=== PATIENT | male | born 1990 | race Two or more races ===

== ENCOUNTER 2021-03-11 08:32 | Emergency (ER) | payer OTHER ==
[~2021-03-11] VITALS: Ht 180.3 cm; Wt 117.9 kg
[2021-03-11 09:14] LABS: Basophils # (auto) 0 10 ^3/uL (0-0.2); Eosinophils # (auto) 0.1 10 ^3/uL (0-0.8); Nucleated Red Blood Cells % 0.2 %; Red Cell Distribution Width 12.9 % (11.8-14.3)
[2021-03-11 09:16] LABS: Basophils % (auto) 0.5 % (0.0-2.0); Eosinophils % (auto) 0.6 % (0.0-7.0); Hematocrit 50.9 % (41.0-53.0); Hemoglobin 18.2 g/dL (13.5-17.5); Mean Corpuscular Hemoglobin 31.6 pg (28.0-32.0); Mean Corpuscular Hgb Conc. 35.8 g/dL (32.0-36.0); Mean Corpuscular Volume 88.3 fL (80.0-100.0); Neutrophils # (auto) 5.5 10 ^3/uL (1.6-8.6); Neutrophils % (auto) 60.4 % (37.0-80.0); Platelet Count (auto) 253 10^3/uL (140-450); Red Blood Cells 5.76 10^6/uL (4.5-5.90); White Blood Cell 9.1 10^3/uL (4.4-10.8)
[2021-03-11 09:20] LABS: Lymphocytes # (auto) 1.9 10 ^3/uL (0.4-5.4); Lymphocytes % (auto) 21.3 % (10.0-50.0); Monocytes # (auto) 1.5 10 ^3/uL (0-1.3); Monocytes % (auto) 17.2 % (0.0-12.0)
[2021-03-11 09:25] LABS: Albumin 4.1 g/dL (3.4-5.0); Magnesium 2.6 mg/dL (1.6-2.6); Potassium 3.7 mmol/L (3.5-5.1)
[2021-03-11 09:29] LABS: BUN/Creatinine Ratio 21.1; Bilirubin, Total 0.9 mg/dL (0.2-1.0); Total Protein 8.2 g/dL (6.4-8.2)
[2021-03-11 10:35] LABS: Urine Bacteria NONE SEEN /hpf (None Seen); Urine Blood Negative /uL (Negative); Urine Mucus FEW (None Seen); Urine Specific Gravity 1.028 (1.001-1.035); Urine WBC 188 /hpf (0 - 3)
[2021-03-11] MEDS ORDERED: SODIUM CHLORIDE 0.9% 1,000 ML IVB ONE (12:30)
[2021-03-11] MEDS ORDERED: ONDANSETRON HCL 4 MG/2 ML VIAL IV ONE (12:30)
[2021-03-11 13:46] LABS: INR 1.05 (0.9-1.15); Partial Thromboplastin Time 29.1 sec (23.0-31.2)
[2021-03-11 17:03] VITALS: BP 141/74
== END 2021-03-11 17:19 | disposition short-term general hospital (02) ==
LOC: ER 08:32
DX: K56.609 Unspecified intestinal obstruction, unspecified as to partial versus complete obstruction (principal); R11.2 Nausea with vomiting, unspecified; Z20.822 Contact with and (suspected) exposure to COVID-19
CPT/HCPCS: 36415; 74176; 80053; 81001; 83690; 83735; 85025; 85610; 85730; 87426; 96361; 96374; 99285; J2405; J7030